=== PATIENT | female | born 1955 | race Caucasian/White ===

== ENCOUNTER 2024-08-07 11:15 | Emergency (ER) | payer MEDICARE, SELFPAY ==
[2024-08-07 11:29] VITALS: BP 137/93
[2024-08-07 11:56] LABS: % Basophils 1.3 % (0-2); % Immature Granulocytes 0.6 % (0-0.5); % Lymphocytes 44.8 % (20.5-51.1); % Neutrophils 37.3 % (42.2-75.2); Absolute Basophils 0.1 10^3/uL (0-0.2); Absolute Eosinophils 0.2 10^3/uL (0-0.7); Absolute Lymphocytes 3.1 10^3/uL (1.2-3.4); Absolute Monocytes 0.9 10^3/uL (0.1-0.6); Absolute Neutrophils 2.6 10^3/uL (1.4-6.5); Hematocrit 38.2 % (37.0-47.0); Mean Corpuscular Hgb 32.1 pg (27.0-31.0); Mean Corpuscular Volume 94.3 fL (81.0-99.0); Nucleated Red Blood Cells % 0 %; Platelet Count 317 10^3/uL (130-400); Red Blood Cell Count 4.05 10^6/uL (4.20-5.40); Red Cell Dist. Width 13.3 % (11.5-14.5); White Blood Cell Count 6.9 10^3/uL (4.8-10.8)
[2024-08-07 12:17] LABS: ALT (SGPT) 22 U/L (0-35); AST (SGOT) 27 U/L (14-36); Albumin 4.4 g/dl (3.5-5.0); Alkaline Phosphatase 72 U/L (38-126); Blood Urea Nitrogen 11 mg/dl (7-17); Calcium 9.7 mg/dl (8.4-10.2); Carbon Dioxide 28 mmol/L (22-30); Chloride 106 mmol/L (98-107); Glucose 91 mg/dl (70-99); Potassium 4.1 mmol/L (3.5-5.1); Sodium 140 mmol/L (135-145); Total Bilirubin 0.5 mg/dl (0.2-1.3); Total Protein 7.9 g/dl (6.3-8.2); eGFR > 60.00
[2024-08-07 12:37] VITALS: BP 160/83
--- NOTE | 2024-08-07 13:14 | ED.GENMED ---
History of Present Illness
General
Chief Complaint: Blood Pressure Problem
Source: patient
Exam Limitations: none
Time Seen by Provider: 08/07/24 12:38
History of Present Illness
History of Present Illness:
68-year-old female presents in referral from finance specialist for evaluation of headache dizziness blurry vision as well as jaw pain. Patient has a history of orbital inflammatory pseudotumor. She was found to have elevated blood pressure at the
finance specialist office and was sent here for evaluation. She was sick pretty much for the month of July. She states 2 weeks ago she had a fever but none currently. She denies a rash. She denies unilateral numbness or weakness. In general
she notes blurry vision out of both eyes. She also notes that her eyes were dilated at the eye doctor today.
Past History
Past History
ED Past Medical History: Other (Had recent headaches and MRI ordered but never had it done as the headaches went away. She thinks it was a sinus infection. )
Social History
Employment: Employed
Phy Exam
Physical Exam
Physical Exam:
General: Well-appearing female no acute respiratory distress
HEENT: Normocephalic pupils equally dilated bilaterally. Extract motions are intact
Heart: Regular rate and rhythm
Lungs: Clear no wheeze
Neurologic exam: Alert conversing appropriately no dysarthria facial asymmetry or aphasia. Normal gait
Course
Orders/Labs/Results
Orders:
Orders
08/07/24 11:36
Electrocardiogram (*1) Urgent
Reason for Study: Hypertension, Benign
EKG- Treatment ONCE
08/07/24 11:44
Complete Blood Count/With Diff Urgent
Comprehensive Metabolic Panel Urgent
Erythrocyte Sed Rate Urgent
Comment: ADD ON
08/07/24 12:56
Electrocardiogram (*1) Urgent
Reason for Study: Vertigo / Dizzy
EKG- Treatment ONCE
08/07/24 13:20
CT Head & Neck Angio W/wo IV Urgent
Reason For Exam: headache, blurry vision, neck pain
08/07/24 13:21
Add On- LAB Urgent
Tests Added?: sed rate
Abnormal Lab Results
08/07/24
11:44
RBC 4.05 L 10^6/uL
(4.20-5.40)
MCH 32.1 H pg
(27.0-31.0)
Absolute Monos (auto) 0.9 H 10^3/uL
(0.1-0.6)
Immature Gran % 0.6 H %
(0-0.5)
Neutrophils % 37.3 L %
(42.2-75.2)
Monocytes % 13.0 H %
(1.7-9.3)
08/07/24 11:44
08/07/24 11:44
Vital Signs
Initial and Last Documented VS:
Initial Vital Signs
Temp Pulse Resp BP Pulse Ox
98.2 F 56 16 137/93 98
08/07/24 11:29 08/07/24 11:29 08/07/24 11:29 08/07/24 11:29 08/07/24 11:29
Last Documented Vital Signs
Temp Pulse Resp BP Pulse Ox
98.2 F 74 20 129/92 98
08/07/24 11:29 08/07/24 14:42 08/07/24 14:42 08/07/24 14:42 08/07/24 14:42
MDM/Problems Addressed
Differential Diagnosis Includes:
Patient with headache dizziness neck and jaw pain sent in by eye doctor for evaluation of elevated blood pressure and possible recurrence of inflammatory orbital pseudotumor.
Discussed with emergency room attending as well as radiology and ophthalmology. Ordered CT angio of the head and neck.
*Critical Care Note
Total Time (30-74mins, 75-104mins- exclusive of procedures): Not Applicable
Update Note
Update Note:
CT angio of the head and neck were negative for acute findings. Is a chronic small infarct not causing today's symptoms. Blood pressure has receded nicely. Recommend she follow-up with her finance specialist. No indication for any further
intervention at this time
ED Attending Note
-
Portions of this chart may have been created with voice recognition software.� Occasional wrong word or��sound alike� substitutions may have occurred due to the inherent limitations of voice recognition software.
Discharge Plan
Departure
Patient Disposition: Home (Routine Discharge)
Date of Disposition: 08/07/24
Time of Disposition: 16:26
Patient with high blood pressure during this ER visit?: No
Discharge Problem:
Headache
Instructions: High Blood Pressure (DC), Headaches in adults
Prescriptions:
New
prednisone 20 mg tablet
40 mg PO DAILY 5 Days Qty: 10 0RF
No Action
oxycodone-acetaminophen 5 MG/325 MG tablet
1 tab PO .Q4-6HPRN PRN (Reason: pain) Qty: 20 0RF
Referrals:
Antony Martin DO [Family Provider] -
Activity Restrictions/Additional Instructions:
Please continue to try to follow-up with your family doctor and finance specialist. Return here if needed otherwise
Interventions
Interventions:
*Risk Screen - Suicide Last Done: 08/07/24 11:29
*General Assessment Last Done: 08/07/24 11:29
*Neglect/Abuse Screening Last Done: 08/07/24 11:29
*ED COVID-19 Vaccine History Last Done: 08/07/24 11:29
ED- Cardiac Assessment Last Done: 08/07/24 12:38
ED- Neurological Assessment Last Done: 08/07/24 12:38
ED- Pulmonary Assessment Last Done: 08/07/24 12:38
Discharge Date and Time
Print Language: MONGOLIAN
[2024-08-07 13:58] LABS: Erythrocyte Sed Rate 18 mm/hour (0-20)
[2024-08-07 14:42] VITALS: BP 129/92
== END 2024-08-07 16:38 | disposition home or self-care (01) ==
LOC: EMR 11:15
PROVIDERS: Emergency Medicine; EMERGENCY PHYSICIAN Emergency Medicine; FAMILY PHYSICIAN Family Medicine
DX: R51.9 Headache, unspecified (principal); R42 Dizziness and giddiness; M54.2 Cervicalgia; R68.84 Jaw pain
CPT/HCPCS: 99284; 70496; 70498; 80053; 85025; 85652; 93005; Q9967

== ENCOUNTER → 2024-09-26 13:34 | Outpatient (REF) | payer MEDICARE, SELFPAY | LOC: RCS 13:34 | PROVIDERS: ATTENDING PHYSICIAN Family Medicine | DX: I10 Essential (primary) hypertension (principal) | CPT/HCPCS: 93306 ==

== ENCOUNTER → 2024-11-06 08:24 | Outpatient (REF) | payer MEDICARE, SELFPAY | LOC: EMG 08:24 | PROVIDERS: ATTENDING PHYSICIAN Family Medicine | DX: M54.12 Radiculopathy, cervical region (principal); M79.602 Pain in left arm; R20.0 Anesthesia of skin | CPT/HCPCS: 95886; 95909 ==